=== PATIENT | male | born 2000 | race Caucasian/White ===

== ENCOUNTER → 2018-09-08 | Emergency (ER) | payer BC ==
[~2018-09-08] VITALS: Ht 180.3 cm; Wt 104.5 kg
[~2018-09-08] MED LIST: TAMIFLU 75MG75 MG PO
[2018-09-09 02:11] VITALS: BP 144/80; PULSE 86; TEMP 97.8
== END ==
LOC: COL.ER 22:13
DX: J10.1 Influenza due to other identified influenza virus with other respiratory manifestations (principal)